=== PATIENT | male | born 1935 | race African-American/Black ===

== ENCOUNTER → 2018-05-07 | Day surgery (SDC) | payer MEDICARE, OTHER ==
[~2018-05-07] MED LIST: ALBUTEROL SULFATE 2.5 MG/3 ML NEBU. NEB PRN; ASPI325T8 PO; ATOR40TA59 PO; ATROPINE 0.5 MG/5 ML DISP.SYRIN. IV PRN; FERR325T14 PO; HYDR50TA6 PO; IV RINGERS SOLUTION,LACTATED 1,000 ML IV SCH; LIDOCAINE 2% PF Vial for OR 5 ML VIAL. ONE; LISI40TA PO; METO50TA4 PO; NALOXONE 0.4 MG/ML VIAL. IV PRN; ONDANSETRON PF 4 MG/2 ML VIAL. IV PRN; PANT40TA5 PO; PRAZ5CAP2 PO; PROPOFOL 40 ML IV ONE; diphenhydrAMINE 50 MG/ML VIAL IV PRN
[2018-05-07 14:02] VITALS: BP 149/65
--- NOTE | 2018-05-11 17:09 | PATHOLOGY ---
[facility] Accession Number: [id number] . 01 Material submitted: . ANTRUM BIOPSY . 01 Clinical history: . GERD, anemia . 02 Diagnosis: Gastric biopsies, antrum: - Acute gastritis, patchy. MBR/05/11/2018 . 02 Comment: Sections of the gastric biopsy reveal segments of gastric body and antral/body transition mucosa showing patchy acute inflammation. A properly controlled immunoperoxidase stain for Helicobacter is negative for Helicobacter organisms. There is no evidence of malignancy. . 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 02 Electronically signed: . Jose L Joe MD, Pathologist NPI- [id number] . 01 Gross description: . The specimen is received in formalin, labeled "Rubio, Avtar, antrum BX" and consists of 2 fragments of soft randolph tissue measuring 0.3 x 0.2 x 0.1 cm and 0.6 x 0.2 x 0.1 cm. They are entirely submitted in A1. (SDY; 05/10/2018) SYU/SYU . 02 Pathologist provided ICD-10: K29.00 . 02 CPT . 551489, [id number] Specimen Comment: A courtesy copy of this report has been sent to Specimen Comment: [phone]. Specimen Comment: Report sent to Performed at: 01 [facility] [address] [facility] [address], [place] [id number] MD Piero Gates MD Phone: [phone] Performed at: 02 [facility] [address] [place], [place] [id number] MD Jose L Joe MD Phone: [phone]
== END | disposition home or self-care (01) ==
LOC: SURG 11:12
PROVIDERS: ATTEND Internal Medicine Gastroenterology
DX: K21.0 Gastro-esophageal reflux disease with esophagitis (principal); K44.9 Diaphragmatic hernia without obstruction or gangrene; K25.4 Chronic or unspecified gastric ulcer with hemorrhage; K29.61 Other gastritis with bleeding; K64.1 Second degree hemorrhoids; K64.4 Residual hemorrhoidal skin tags; I10 Essential (primary) hypertension; D50.9 Iron deficiency anemia, unspecified; Z79.899 Other long term (current) drug therapy; Z88.8 Allergy status to other drugs, medicaments and biological substances; Z95.5 Presence of coronary angioplasty implant and graft; I25.10 Atherosclerotic heart disease of native coronary artery without angina pectoris; I25.2 Old myocardial infarction; Z87.891 Personal history of nicotine dependence; Z85.79 Personal history of other malignant neoplasms of lymphoid, hematopoietic and related tissues
CPT/HCPCS: 43239; 45378; J2704; J7120; 88305; 88342; J2001